=== PATIENT | female | born 1945 | race Caucasian/White ===

== ENCOUNTER → 2017-08-09 | Outpatient (CLI) | payer MEDICARE ==
[~2017-08-09] MED LIST: ACYC-114 PO; ALBU6.7H INH; ASPI-496 PO; ATOR10TA9 PO; BUDE10.22 INH; BUPR150T13 PO; ERYT250T14 PO; ESOM40CA PO; FESO8TAB PO; FLUT1DIS3 INH; FURO40TA6 PO; GABA-826 PO; HYDR-202 PO; HYDR-3245 PO; LOSA50TA6 PO; MELO15TA24 PO; NYST5000 PO; POTA10TA31 PO; PRAM0.5T5 PO; TIZA4TAB PO; TRAM50TA2 PO; VENL37.511 PO
== END | disposition home or self-care (01) ==
LOC: RAD 12:34
PROVIDERS: ATTEND Internal Medicine
DX: J18.1 Lobar pneumonia, unspecified organism (principal)
CPT/HCPCS: 71020

== ENCOUNTER → 2017-09-12 | Outpatient (CLI) | payer MEDICARE | END | disposition home or self-care (01) | LOC: RAD 11:25 | PROVIDERS: ATTEND Physician Assistant | DX: R91.8 Other nonspecific abnormal finding of lung field (principal); M48.54XD Collapsed vertebra, not elsewhere classified, thoracic region, subsequent encounter for fracture with routine healing; M85.88 Other specified disorders of bone density and structure, other site | CPT/HCPCS: 71046 ==

== ENCOUNTER → 2018-11-10 | Outpatient (CLI) | payer MEDICARE ==
[~2018-11-10] MED LIST changes: +ESCI20TA PO; +GUAI400T66 PO; +IPRA3AMP30 INH; +LEVA15HF5 INH; +LOSA50TA14 PO; -LOSA50TA6 PO; +[UNRECOGNIZED DRUG - OTHER] TD
== END | disposition home or self-care (01) ==
LOC: CFH 14:45
PROVIDERS: ATTEND Family Medicine
DX: I67.82 Cerebral ischemia (principal); G93.89 Other specified disorders of brain; N26.1 Atrophy of kidney (terminal)
CPT/HCPCS: 70551